=== PATIENT | male | born 1975 | race Caucasian/White ===

== ENCOUNTER 2020-11-28 15:40 | Outpatient (CLI) | payer OTHER, SELFPAY ==
--- NOTE | 2020-11-28 14:24 | DI.RAD_ITS ---
Exam(s) XR CERVICAL SPINE COMP 4-5V EXAM: XR CERVICAL SPINE COMP 4-5V CLINICAL HISTORY: Persistent pain with radiculopathy on left,cervical paraspinal muscle spasm. TECHNIQUE: 2D digital imaging was performed. COMPARISON: There is reversal of the normal lordotic curvature of the cervical spine. Epicenter of this alteration is at C6-7 level where there is chronic advanced disc space narrowing and anterior os teophytes. On the oblique views there are bilateral Luschka joint osteophytes evident at this level. There is minimal disc space narrowing at C5-6 level. Other disc spaces above this level exhibit no rmal height. No cervical ribs. No osseous lesions. FINDINGS: Chronic degenerative disc disease C5-6-7 levels as described above. Mild disc space narrowing at C5-6 level. IMPRESSION: DATA REPOSITORY: RADIATION DOSE DELIVERED:
== END 2020-11-28 16:00 ==
PROVIDERS: Visit Provider Nurse Practitioner Family
DX: M62.838 Other muscle spasm (principal); M54.12 Radiculopathy, cervical region
CPT/HCPCS: 72050

== ENCOUNTER 2021-12-05 02:03 | Outpatient (CLI) | payer MEDICAID, SELFPAY ==
[2021-12-05 08:24] LABS: HCT 46.9 % (40.0-50.0); HGB 15.8 g/dL (13.5-17.5); MCH 30.9 pg (27.0-33.0); MCHC 33.7 % (32.0-36.0); MCV 92 fL (80-95); MPV 10.9 fL (8.0-11.0); Platelet Count 297 10^3/uL (130-400); RBC 5.12 10^6/uL (4.36-5.78); RDW 13.4 % (11.8-14.1); RDW-SD 45.6 fL; WBC 6.41 10^3/uL (4.4-10.8)
[2021-12-05 09:12] LABS: ALT 44 U/L (16-63); AST 28 U/L (15-37); Albumin 4.1 g/dL (3.4-5.0); Alkaline Phosphatase 57 U/L (46-116); Anion Gap 9.5 mmol/L (3-11); BUN 15 mg/dL (7-18); Bilirubin, Total 0.8 mg/dL (0.2-1.0); CO2 28.5 mmol/L (21.0-32.0); CREATININE 0.8 mg/dL (0.70-1.30); Calculated LDL 68 mg/dL (<100); Chloride 101 mmol/L (98-107); Cholesterol 129 mg/dL (<200); Glucose 101 mg/dL (74-106); HDL Cholesterol 45 mg/dL (40-60); Potassium 3.9 mmol/L (3.5-5.1); Sodium 139 mmol/L (136-145); TSH (W/Ref FT4) 1.35 uIU/mL (0.36-3.74); Total Protein 7.6 g/dL (6.4-8.2); Triglyceride 84 mg/dL (<150)
[2021-12-08 09:50] LABS: Hepatitis C Ab w Rflx HCV PCR Reactive (Negative)
[2021-12-08 10:11] LABS: HIV-1/2 Ag & Ab Screen Negative (Negative)
[2021-12-08 14:38] LABS: HCV RNA Detection Quantitative 2430000 IU/mL (Undetected); HCV RNA Qualitative Detected (Undetected)
== END 2021-12-05 02:04 | disposition home or self-care (01) ==
LOC: LBO 02:03
PROVIDERS: PCP Family Medicine; Visit Provider Family Medicine
DX: I10 Essential (primary) hypertension (principal); Z13.6 Encounter for screening for cardiovascular disorders; Z11.59 Encounter for screening for other viral diseases; Z11.4 Encounter for screening for human immunodeficiency virus [HIV]; Z00.00 Encounter for general adult medical examination without abnormal findings
CPT/HCPCS: 36415; 80053; 80061; 85027; 86803; 87389; 87522; 84443

== ENCOUNTER 2022-08-25 02:56 | Outpatient (CLI) | payer MEDICAID, SELFPAY ==
[2022-08-25 19:38] LABS: ALT 19 U/L (16-63); AST 15 U/L (15-37); Albumin 4.4 g/dL (3.4-5.0); Alkaline Phosphatase 57 U/L (46-116); Anion Gap 10.1 mmol/L (3-11); BUN 10 mg/dL (7-18); Bilirubin, Total 0.3 mg/dL (0.2-1.0); CO2 28.9 mmol/L (21.0-32.0); CREATININE 0.9 mg/dL (0.70-1.30); Calcium 9.5 mg/dL (8.5-10.1); Chloride 105 mmol/L (98-107); Glucose 71 mg/dL (74-106); Potassium 4.1 mmol/L (3.5-5.1); Sodium 144 mmol/L (136-145); Total Protein 7.6 g/dL (6.4-8.2)
[2022-08-27 11:01] LABS: Hepatitis C Ab w Rflx HCV PCR Reactive (Negative)
[2022-08-28 12:33] LABS: HCV RNA Qualitative Undetected (Undetected)
== END 2022-08-25 02:57 | disposition home or self-care (01) ==
LOC: LBO 02:56
PROVIDERS: PCP Nurse Practitioner Family; Visit Provider Physician Assistant Medical
DX: B18.2 Chronic viral hepatitis C (principal)
CPT/HCPCS: 36415; 80053; 86803; 87522

== ENCOUNTER 2023-07-04 11:09 | Emergency (ER) | payer MEDICAID, SELFPAY ==
[2023-07-04 11:11] VITALS: BP 104/80; PULSE 111; RESP 18; TEMP 36.5; O2SAT 98
[2023-07-04 11:20] VITALS: BP 130/87; PULSE 85; RESP 14; TEMP 37.2; O2SAT 100
--- NOTE | 2023-07-04 11:33 | W.ED.GENAD ---
HPI General Mode of arrival: ambulatory. Date/Time Provider Initiated Documentation: 07/04/23 11:11. Limitations to Documentation: no limitations. Information obtained by: patient and RN notes reviewed. History of Present Illness 48 year old M presents to the emergency department with the chief complaint of Nausea vomiting diarrhea, described as moderate, Quality is described as aching, and is localized to the abdomen. Patient started experiencing this hour(s) (9) and it has been intermittent. Eating worsens symptoms . Patient did receive the following treatments prior to arrival, other (Pepto-Bismol) Related Data Home Medications Medication Instructions Recorded Confirmed Unknown [No Known Home Meds] 01/31/21 07/04/23 Allergies Allergy/AdvReac Type Severity Reaction Status Date / Time No Known Allergies Allergy Verified 07/04/23 11:16 General Stated Complaint: Abd Prob DEBBIE: 3 Review of Systems Constitutional Constitutional: Reports chills, Denies fever(s) and Reports poor appetite Cardiovascular Cardiovascular: Denies chest pain and Denies dyspnea Respiratory Respiratory: Denies cough and Denies dyspnea Gastrointestinal Gastrointestinal: Reports as per HPI, Reports abdominal pain, Denies melena, Denies hematochezia, Denies change in bowel habits, Denies constipation, Reports diarrhea, Reports nausea and Reports vomiting Genitourinary Genitourinary: Denies hematuria, Denies difficulty urinating and Denies dysuria Integumentary/Breasts Skin/Breast: Denies rash Exam Const General: cooperative Orientation: alert, awake and oriented x3 Resp Effort & Inspection: normal respiratory effort and able to speak in complete sentences Auscultation: clear to auscultation bilaterally Cardio Rate: regular rate Rhythm: regular rhythm Heart Sounds: S1 normal and S2 normal GI Palpation: soft, not firm, no guarding, no masses, no pulsatile masses, not rigid and nontender Auscultation: normal bowel sounds Back/Spine/Pelvis Back: no CVA tenderness Neuro General: patient alert, patient awake, patient oriented x3, gait normal and moves all extremities Course Vital Signs Vital signs: Vital Signs Temperature 36.5 C 07/04/23 11:11 Pulse 111 H 07/04/23 11:11 Respiratory Rate 18 07/04/23 11:11 Blood Pressure 104/80 07/04/23 11:11 Pulse Oximetry 98 07/04/23 11:11 Temperature 37.2 C 07/04/23 11:20 Temperature Source Oral 07/04/23 11:20 Pulse 85 07/04/23 11:20 Respiratory Rate 14 07/04/23 11:20 Respiratory Effort Normal 07/04/23 11:15 Blood Pressure 130/87 07/04/23 11:20 Blood Pressure Position Supine 07/04/23 11:20 Pulse Oximetry 100 07/04/23 11:20 Oxygen Delivery Method Room Air 07/04/23 11:20 Oxygen Flow Rate 0 07/04/23 11:11 Pain Level 8 07/04/23 11:20 Medical Decision Making Patient presenting to the emergency department for chief complaint of nausea vomiting diarrhea. Patient reports around 2 AM this morning that he started having significant diarrhea with intermittent vomiting which is now also cause some abdominal pain. He states 5-10 episodes of vomiting and greater than 20 episodes of diarrhea. Patient states this is watery with no blood present in either emesis or stool. Denies any fever, does suspect foodborne illness given that multiple others in the home have similar illness. All of them did eat pizza around 3 PM yesterday afternoon. Patient states main reason he came is inability to tolerate p.o. intake and cramping abdominal pain. Patient does have significant contributing past medical history of hep C that underwent full treatment at [facility] with resolution, previous alcohol abuse with 10 years of sobriety, otherwise no other significant contributing past medical history reported by patient. Physical exam shows slight tachycardia otherwise stable vital signs, soft nontender abdomen, no CVA tenderness, otherwise noncontributory exam. Will check labs for potential electrolyte abnormalities will give fluids and Zofran and Toradol pending results Reviewed patient's labs and does show significant leukocytosis but also noted is elevated hemoglobin hematocrit and red count so question some contributing dehydration, CMP shows slightly elevated glucose and low AST ALT with high total protein, normal lipase, urine is concentrated with high specific gravity, ketones and protein are present. Labs otherwise nondiagnostic. Given significant leukocytosis with WBC count of [address] imaging to ensure no emergent findings. Will also give 1 L of LR pending results Reviewed CT imaging along with radiologist interpretation that shows no acute findings. There are some chronic nonacute findings that I feel that patient can follow-up with primary care provider which may be secondary to patient's medical history of hep C. Reassessed patient and patient states significant improvement of symptoms. Will p.o. challenge. Patient able to tolerate p.o. intake so we will discharge with return and follow-up precautions along with typical bottle of Zofran. After discussion of diagnosis and plan of care patient has no further needs, questions, or concerns and states clear understanding to return to the emergency department for any worsening symptoms. This documentation was generated using [employer] dictation system, please disregard any oddities of phrase or misspellings. Imaging Data Radiologic Study: Radiologist's impression: Exam(s) PROCEDURE INFORMATION: Exam: CT Abdomen And Pelvis With Contrast Exam date and time: 07/04/2023 12:52 PM Age: 48 years old Clinical indication: Other: Nausea vomiting diarrhea, abdominal pain TECHNIQUE: Imaging protocol: Computed tomography of the abdomen and pelvis with contrast. Contrast material: OMNI 350; Contrast volume: 100 ml; Contrast route: INTRAVENOUS (IV); COMPARISON: CR CHEST 2 VIEWS PA,LAT 05/25/2017 11:22 AM FINDINGS: Liver: Hypodense 1.8 cm nodule in segment II that is Hounsfield units approximately 50. This may be a slightly complicated cyst. The remainder of the liver is unremarkable. Gallbladder and bile ducts: The gallbladder is normal. Pancreas: The pancreas is normal. Spleen: A splenule is present. The spleen itself appears unremarkable. Adrenal glands: The adrenal glands are normal. Kidneys and ureters: Normal. No hydronephrosis or nephrolithiasis. Stomach and bowel: Unremarkable. No obstruction. No mucosal thickening. Appendix: No evidence of appendicitis. Intraperitoneal space: Unremarkable. No free air. No significant fluid collection. Vasculature: Unremarkable. No abdominal aortic aneurysm. Lymph nodes: There is a single enlarged nonspecific lymph node. Urinary bladder: There is moderate bladder wall thickening consistent with incomplete distension, chronic outflow obstruction, or cystitis. Reproductive: Unremarkable as visualized. Bones/joints: Unremarkable. No acute fracture. Soft tissues: Unremarkable. IMPRESSION: 1. No acute findings. 2. There is moderate bladder wall thickening consistent with incomplete distension, chronic outflow obstruction, or cystitis. 3. Cystic area in segment II of the liver needs further assessment with ultrasound or CT/MRI with liver protocol. Dictated and Authenticated by: Yao Arvizu MD. Lab Data Lab results reviewed: Yes I reviewed the patient's lab results. Quality:SDOH Health Related Social Needs: No Data to Display PFSH All Active Problems Gastroenteritis (Acute) Cigarette smoker (Acute) Medical History Alcohol use disorder in remission Hepatitis C COVID-19 About fall 2020 breakthrough infection with mild loss of taste Substance abuse Polysubstance abuse-sober since about 2009 Family History Mother , 72 Alcohol use disorder Depression Heart disease Lung cancer Father Substance use disorder Brother , 21 Substance use disorder Son No problems noted. Maternal Grandfather No problems noted. Maternal Grandmother No problems noted. Paternal Grandfather No problems noted. Paternal Grandmother No problems noted. Social History Smoking/Tobacco Use Status: Current every day Tobacco Type: cigarettes Years smoked: 20 Tobacco: How many years used: 20 Quit status: not considering quitting Second Hand Exposure: Yes Smoking risk assessment performed?: Yes Alcohol Intake: former Drug use: Current Sobriety Substance use type: marijuana, crack/cocaine and hallucinogens Caregiver/Support person: No Household members: significant other and children Housing: apartment Communication Needs: None Do you need help understanding health information?: Never Pets and animals: Yes Pets and animals: cat(s) Sexually active: Yes Do you think of yourself as: straight/heterosexual Current gender identity: male What is your relationship status?: How often do you talk on the phone with friends or family?: once per week How often do you get together with friends or relatives?: once per week How often do you attend worship or restorationism services?: decline to answer Do you belong to any clubs or organized social groups?: no Panel score (0-1 are the most socially isolated patients): 0 What type of physical activity do you participate in: running Duration: 15-30 minutes/day Frequency: 1-2 times per week Emily/Buddhist: No preference Seatbelt use: always Helmet use: Yes Helmet use: always Drive intox or ride w/intox 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 Return to the emergency department for any new or significant worsening of symptoms Follow-up with primary care provider if not fully improving or for further reassessment of the abnormal CT findings as discussed. Referrals: Karley Soto NP [Primary Care Provider] - 2 weeks Discharge Data Discharge Date/Time-TO BE ENTERED AT DEPARTURE: 07/04/23 14:25
[2023-07-04] MEDS: Normal Saline 1,000 ML 1000 ML IV (11:36)
[2023-07-04] MEDS: Ondansetron 4 MG/2 ML VIAL IVP (11:37)
[2023-07-04 11:47] LABS: Abs Immature Grans 0.13 10^3/uL (0.0-0.06); Absolute Lymphocyte Count 0.69 10^3/uL (1.2-3.4); Absolute Monocyte Count 1.53 10^3/uL (0.1-0.8); Basophils % 0.4; HCT 54.3 % (40.0-50.0); HGB 18.6 g/dL (13.5-17.5); Immature Grans % 0.5; Lymphocytes % 2.9; MCH 30.4 pg (27.0-33.0); MCHC 34.3 % (32.0-36.0); MCV 89 fL (80-95); MPV 10.6 fL (8.0-11.0); Monocytes % 6.4; Neutrophils % 88.8; Platelet Count 374 10^3/uL (130-400); RBC 6.12 10^6/uL (4.36-5.78); RDW 13.7 % (11.8-14.1); RDW-SD 44.4 fL; WBC 23.89 10^3/uL (4.4-10.8)
[2023-07-04 11:48] LABS: Bilirubin Small (Negative); Blood Negative (Negative); Clarity Sl Cloudy (Clear); Glucose Negative (Negative); Ketones Trace mg/dL (Negative); Leukocyte Esterase Negative (Negative); Nitrite Negative (Negative); Specific Gravity >= 1.030 (1.005-1.025); Urobilinogen 0.2 mg/dL (Up to 0.2)
[2023-07-04] MEDS: Ketorolac 15 MG/ML VIAL IVP (11:54)
[2023-07-04 12:07] LABS: ALT 15 U/L (16-63); AST 13 U/L (15-37); Albumin 4.8 g/dL (3.4-5.0); Alkaline Phosphatase 72 U/L (46-116); Anion Gap 9.9 mmol/L (3-11); BUN 16 mg/dL (7-18); Bilirubin, Total 0.7 mg/dL (0.2-1.0); CO2 27.1 mmol/L (21.0-32.0); CREATININE 1.2 mg/dL (0.70-1.30); Chloride 103 mmol/L (98-107); Estimated GFR 73.67 (mL/min/1.73m2); Glucose 147 mg/dL (74-106); Lipase 18 U/L (16-77); Potassium 4.4 mmol/L (3.5-5.1); Sodium 140 mmol/L (136-145); Total Protein 8.8 g/dL (6.4-8.2)
[2023-07-04 12:13] LABS: Absolute Eosinophil Count 0.24 10^3/uL (0.0-0.7); Absolute Neutrophil Count 21.21 10^3/uL (1.2-6.7)
[2023-07-04 12:14] LABS: Diff Comment Diff Reviewed; RBC Morphology Normal
[2023-07-04 12:16] LABS: Bacteria Negative HPF (Negative); C & S Indicated? No; Casts 0-2 Hyaline LPF (Negative); Crystals Negative HPF (Negative); Epithelial Cells Rare HPF (Negative); Mucus Moderate (Negative); RBC Negative HPF (0-2); WBC Negative HPF (0-5)
[2023-07-04] MEDS: Omnipaque 350 MG/ML 100 ML BTL IJ (12:47)
--- NOTE | 2023-07-04 12:59 | DI.CT_ITS ---
Exam(s) CT ABDOMEN PELVIS W EXAM: CT ABDOMEN PELVIS W CLINICAL HISTORY: Nausea vomiting diarrhea, abdominal pain. TECHNIQUE: Imaging Protocol: Axial computed tomography images with coronal and sagittal reformatted images were created and reviewed CONTRAST MATERIAL: Intravenous: Omnipaque-350 100cc Oral: None COMPARISON: No exams were available for comparison FINDINGS: VISUALIZED LUNG BASES: No nodules nor pleural effusions evident. ABDOMEN: There is no ascites. LIVER: In the left hepatic lobe there is a 1.7 by 1.6 cm well-defined hypodensity which exhibits dens ity measurements averaging 45 HU which is too high to be a simple cyst. Ultrasound recommended. The re are no other focal hepatic findings. No dilated intrahepatic ducts. GALLBLADDER/BILIARY: No obvious gallbladder pathology. CBD is not dilated. PANCREAS: No evidence of pancreatic mass nor dilatation of the pancreatic duct. SPLEEN: Spleen is not enlarged. No obvious intrasplenic lesions. Benign round splenule measuring 1. 6 x 1.4 cm seen just below the spleen. The splenic and portal veins are patent. ADRENALS: There are no significant adrenal masses. KIDNEYS:No cysts evident. No solid renal masses. No calculi nor hydronephrosis.. ABDOMINAL AORTA: Abdominal aorta is not enlarged. LYMPH NODES:There is no significant para-aortic adenopathy. There are few slightly prominent retrope ritoneal lymph nodes around the pancreatic head-juany hepatis region. ABDOMINAL WALL: Small fat only containing midline umbilical hernia. No inguinal hernias. GI: There is no evidence of bowel obstruction, free air, nor abscess. PELVIS: GI: No evidence of appendicitis.No evidence of sigmoid diverticulitis. LYMPH NODES: There is no intrapelvic nor inguinal adenopathy. REPRODUCTIVE: Prostate not enlarged. Seminal vesicles unremarkable. URINARY BLADDER: Thickened wall but may be related to under distension. OSSEOUS: No fractures and no significant osseous lesions. IMPRESSION: 1. There is a 17 x 16 mm hypodense nodule in the left hepatic lobe with average density measurement o f 45 HU, too high to be a simple cyst. Next step should be studied with ultrasound. 2. Bladder wall uniformly thickening although this may be related to incomplete distension. RADIATION DOSE DELIVERED: 647.44mGy.cm Total DLP DATA REPOSITORY: All CT scans at this facility are submitted to the National Radiology Data Registry (NRDR) Dose Index Registry (DIR) with the [employer] (ACR). RADIATION OPTIMIZATION: All CT scans at this facility use at least one of these dose optimization te chniques: automated exposure control; mA and/or kV adjustment per patient size (includes targeted exa ms where dose is matched to clinical indication); or iterative reconstruction.
[2023-07-04] MEDS: Lactated Ringers 1,000 ML 1000 ML IV (13:04)
--- NOTE | 2023-07-04 13:26 | DI.VRAD_ITS ---
PROCEDURE INFORMATION: Exam: CT Abdomen And Pelvis With Contrast Exam date and time: 07/04/2023 12:52 PM Age: 48 years old Clinical indication: Other: Nausea vomiting diarrhea, abdominal pain TECHNIQUE: Imaging protocol: Computed tomography of the abdomen and pelvis with contrast. Contrast material: OMNI 350; Contrast volume: 100 ml; Contrast route: INTRAVENOUS (IV); COMPARISON: CR CHEST 2 VIEWS PA,LAT 05/25/2017 11:22 AM FINDINGS: Liver: Hypodense 1.8 cm nodule in segment II that is Hounsfield units approximately 50. This may be a slightly complicated cyst. The remainder of the liver is unremarkable. Gallbladder and bile ducts: The gallbladder is normal. Pancreas: The pancreas is normal. Spleen: A splenule is present. The spleen itself appears unremarkable. Adrenal glands: The adrenal glands are normal. Kidneys and ureters: Normal. No hydronephrosis or nephrolithiasis. Stomach and bowel: Unremarkable. No obstruction. No mucosal thickening. Appendix: No evidence of appendicitis. Intraperitoneal space: Unremarkable. No free air. No significant fluid collection. Vasculature: Unremarkable. No abdominal aortic aneurysm. Lymph nodes: There is a single enlarged nonspecific lymph node. Urinary bladder: There is moderate bladder wall thickening consistent with incomplete distension, chronic outflow obstruction, or cystitis. Reproductive: Unremarkable as visualized. Bones/joints: Unremarkable. No acute fracture. Soft tissues: Unremarkable. IMPRESSION: 1. No acute findings. 2. There is moderate bladder wall thickening consistent with incomplete distension, chronic outflow obstruction, or cystitis. 3. Cystic area in segment II of the liver needs further assessment with ultrasound or CT/MRI with liver protocol. Dictated and Authenticated by: Yao Arvizu MD. Ordering:EDILSON Melara MD
[2023-07-04 14:14] VITALS: BP 90/59; PULSE 98; RESP 14; O2SAT 100
[2023-07-04] MEDS: Ondansetron O.D.T. 4 MG TABEF, 3 TABS/BTL PO (16:42)
== END 2023-07-04 14:25 | disposition home or self-care (01) ==
PROVIDERS: Emergency Provider Nurse Practitioner Family; PCP Nurse Practitioner Family
DX: K52.9 Noninfective gastroenteritis and colitis, unspecified (principal); F17.210 Nicotine dependence, cigarettes, uncomplicated
CPT/HCPCS: 80053; 83690; 96361; 96374; 96375; 99285; 74177; 81003; 81015; 83735; 85025; 99284; J1885; J2405; J3490

== ENCOUNTER → 2023-07-12 01:32 | Outpatient (CLI) | payer MEDICAID, OTHER, SELFPAY ==
--- NOTE | 2023-07-12 07:15 | DI.US_ITS ---
Exam(s) US ABDOMEN LIMITED EXAM: US ABDOMEN LIMITED CLINICAL HISTORY: f/u abnl ct scan,abnl liver,r93.2 TECHNIQUE: Ultrasound abdomen performed using standard protocol. COMPARISON: CT CT ABDOMEN PELVIS W from 07/04/2023 FINDINGS: LIVER: Normal size and echogenicity. 1.8 cm smoothly marginated hyperechoic lesion noted in the left lobe of the liver corresponding to the lesion on CT. Findings consistent with a hemangioma. GALLBLADDER: No evidence of cholelithiasis. No evidence of wall thickening. No pericholecystic fluid identified. DE SANTIAGO'S SIGN: Negative. BILIARY SYSTEM: No intrahepatic or extrahepatic biliary ductal dilation. Right kidney: No evidence of renal calculi. No evidence of hydronephrosis. No renal mass or cyst iden tified. PANCREAS: Normal where visualized. ABDOMINAL AORTA AND IVC: Visualized portions normal caliber. ASCITES: None seen. IMPRESSION: Liver lesion on CT is consistent with a hemangioma by ultrasound. No follow-up recommended. DATA REPOSITORY:
== END ==
PROVIDERS: PCP Nurse Practitioner Family; Visit Provider Nurse Practitioner Family
DX: D18.03 Hemangioma of intra-abdominal structures (principal)
CPT/HCPCS: 76705